=== PATIENT | male | born 1965 ===

== ENCOUNTER 2020-07-24 13:46 | Outpatient (CLI) | payer OTHER, SELFPAY | END 2020-07-24 13:47 | disposition home or self-care (01) | LOC: ANHCOVIDVC 13:47 | PROVIDERS: PCP Family Medicine | DX: Z23 Encounter for immunization (principal) | CPT/HCPCS: 0001A; 91300 ==

== ENCOUNTER 2020-08-14 13:44 | Outpatient (CLI) | payer OTHER, SELFPAY | END 2020-08-14 13:45 | disposition home or self-care (01) | LOC: ANHCOVIDVC 13:44 | PROVIDERS: PCP Family Medicine | DX: Z23 Encounter for immunization (principal) | CPT/HCPCS: 0002A; 91300 ==

== ENCOUNTER → 2020-10-30 14:05 | Outpatient (REF) | payer OTHER, SELFPAY | LOC: ANHLAB 14:05 | PROVIDERS: PCP Family Medicine; Visit Provider Nurse Practitioner | DX: D23.39 Other benign neoplasm of skin of other parts of face (principal) | CPT/HCPCS: 88305 ==